=== PATIENT | female | born 1955 | race Caucasian/White ===

== ENCOUNTER 2019-08-22 11:14 | Outpatient (CLI) | payer OTHER, SELFPAY ==
--- NOTE | 2019-08-22 11:31 | CT_ITS ---
WS: [id number] CT ABDOMEN AND PELVIS WITH CONTRAST HISTORY: PELVIC NODULE TECHNIQUE: Imaging performed of the abdomen and pelvis with IV contrast. Single phase imaging of the abdomen. Coronal and sagittal reformats are submitted. All CT scans at [facility] use at least one of these dose optimization techniques: automated exposure control; mA and/or kV adjustment per patient size (includes targeted exams where dose is matched to clinical indication); or iterativ e reconstruction. IV CONTRAST: Omnipaque 300; 95 mL IV. Oral contrast: No DLP: 113.89 mGy-cm. COMPARISON: 07/31/2018 and 04/20/2018 Lower thorax: Lung bases are clear. Heart is normal size. No hiatal hernia. Liver/biliary system: Normal size with no intrahepatic dilatation. Gallbladder: Prior cholecystectomy. Pancreas: Normal. Spleen: Normal. Adrenal glands: Normal. Right kidney: Normal. Left kidney: Normal. Aorta: Normal. Lymphadenopathy: None. Free fluid: None. GI tract: Mild fecal retention. The appendix is not definitely visualized. No inflammatory changes in the RIGHT lower quadrant. There are several diverticula in the sigmoid colon. Abdominal wall: Small umbilical hernia contains fat only. Pelvis: Again noted is long-term stability of calcified nodule in the LEFT adnexa measuring 12 mm. B enign in appearance and may be related to a calcified diverticulum as it is inseparable from the sigm oid. Midline uterus. No adnexal masses. Bones: Mild degenerative changes in the lower lumbar spine. CT/CT abdomen pelvis w con* [id number] IMPRESSION: 1. Benign calcified nodule in the LEFT adnexa may be from a prior episode of d iverticulitis with a calcified diverticulum. No additional follow-up necessary. 2. Prior cholecystectomy. 3. Small hiatal hernia.
[2019-08-22] MEDS: iohexol 300 mg/mL 100 mL Btl IV (12:33)
[2019-08-22 12:38] LABS: Blood Urea Nitrogen 16 mg/dL (8-23); Glomerular Filtration Rate 56.2 mL/min (90-130)
== END 2019-08-22 11:15 | disposition home or self-care (01) ==
PROVIDERS: Family Provider Family Medicine; Visit Provider Family Medicine
DX: R19.00 Intra-abdominal and pelvic swelling, mass and lump, unspecified site (principal); K44.9 Diaphragmatic hernia without obstruction or gangrene; Z90.49 Acquired absence of other specified parts of digestive tract
CPT/HCPCS: 74177; 82565; 84520; Q9967

== ENCOUNTER 2019-11-14 08:35 | Day surgery (SDC) | payer OTHER, SELFPAY ==
[2019-11-13 10:19] VITALS: BMI 25.0
[2019-11-14 08:55] VITALS: BP 133/84; PULSE 85; RESP 18; TEMP 36.2; O2SAT 96
--- NOTE | 2019-11-14 09:02 | ANES.PREANE2 ---
Pre-Anesthetic Assessment Pre-Anesthetic Assessment: Height/Weight: Height 1.73 m Weight 74.843 kg Temp Pulse Resp BP Pulse Ox 97.2 F L 85 18 133/84 96 11/14/19 08:55 11/14/19 08:55 11/14/19 08:55 11/14/19 08:55 11/14/19 08:55 Preop Diagnosis: p Proposed Procedure: Operation Date: 11/14/19 10:45 Proposed Procedures p Colonoscopy 17916 Z86.010(Not Applicable) - Guillermo Kingston MD Was Beta Susie taken within 24 hours: N/A Last intake: Intake Last Liquid Date 11/13/19 Last Liquid Time 23:30 Last Solid Date 11/12/19 Last Intake: 09:06 Social: Social History: No alcohol and No tobacco Exam: Pre-Anes Outpt Exam: alert, oriented x 3, clear to auscultation bilaterally and regular rate & rhythm Airway: Submandibular: WNL Cervical ROM: WNL MP: 1 History/ROS: No significant complaints Pulmonary: Pulmonary: None reported CV/HEM: CV/HEM: None reported : : None reported Hepatic: Hepatic: None reported GI: GI: GERD Metabolic: Metabolic: None reported Musc/skel: Musc/skel: None reported Neuropsych: Neuropsych: None reported Anesthetic Plan: ASA status: 2 Anesthesia: MAC Risk of > 500 ml blood loss (7ml/kg in children): No PFSH Anesthesia PFSH: Family History Other Cancer Diabetes Heart disease Social History (Updated 11/10/19 @ 14:[address]) Smoking and tobacco status: never smoked Alcohol intake: current Alcohol intake frequency: holidays/special occasions only History of recent travel: No Data Anesthesia Cardiac Studies: No Data to Display
[2019-11-14] MEDS: sodium chloride 0.9% 1,000 ML 30 ML IV (09:05)
--- NOTE | 2019-11-14 09:47 | W.PM.OPSUD ---
Surgery/Procedure H&P Update DATE OF PROCEDURE: November 14, 2019 DATE H&P PERFORMED: 11/10/19 PREOP DIAGNOSIS: p PLANNED PROCEDURE: Operation Date: 11/14/19 10:45 Proposed Procedures p Colonoscopy 54639 Z86.010(Not Applicable) - Guillermo Kingston MD
[2019-11-14 10:08] VITALS: BP 103/56; PULSE 65; RESP 16; TEMP 36.4; O2SAT 99
--- NOTE | 2019-11-14 10:12 | ANE.PACU2 ---
Inpatient post-anesthesia follow up: Airway intact: Yes Vital signs: Temperature 97.6 F Pulse Rate 65 Respiratory Rate 16 Blood Pressure 103/56 Pulse Oximetry 99 Oxygen Delivery Me thod Nasal Cannula Oxygen Flow Rate 3 Fraction of Inspir ed Oxygen Hydration adequate: Yes Nausea and vomiting: No Pain level: 1 Mental status: Baseline
[2019-11-14 10:15] VITALS: BP 106/63; PULSE 62; RESP 18; O2SAT 99
== END 2019-11-14 10:25 | disposition home or self-care (01) ==
PROVIDERS: Family Provider Family Medicine; PCP Family Medicine; Visit Provider Internal Medicine
PROC: 0DJD8ZZ Inspection of Lower Intestinal Tract, Via Natural or Artificial Opening Endoscopic (ICD-10-PCS; CPT 45378; principal; 2019-11-14 09:30)
DX: Z12.11 Encounter for screening for malignant neoplasm of colon (principal); Z86.010 Personal history of colon polyps; K21.9 Gastro-esophageal reflux disease without esophagitis
CPT/HCPCS: 12345; 45378; J2704; J7030

== ENCOUNTER 2020-06-30 09:29 | Outpatient (RCR) | payer OTHER, SELFPAY | END 2020-06-30 23:59 | disposition home or self-care (01) | LOC: SPT 09:29 | PROVIDERS: PCP Family Medicine; Referring Provider Chiropractor; Visit Provider Chiropractor | DX: M54.2 Cervicalgia (principal) | CPT/HCPCS: 97110; 97162 ==

== ENCOUNTER 2020-07-01 06:00 | Outpatient (RCR) | payer OTHER, SELFPAY | END 2020-07-30 23:59 | disposition home or self-care (01) | LOC: SPT 06:00 | PROVIDERS: PCP Family Medicine; Referring Provider Chiropractor; Visit Provider Chiropractor | DX: M54.2 Cervicalgia (principal) | CPT/HCPCS: 97110 ==

== ENCOUNTER → 2020-10-13 09:07 | Outpatient (BNVA) | payer OTHER, SELFPAY | PROVIDERS: PCP Family Medicine; Referring Provider Chiropractor; Visit Provider Podiatrist Foot & Ankle Surgery | DX: M79.672 Pain in left foot (principal) | CPT/HCPCS: 73630 ==

== ENCOUNTER 2020-10-13 14:26 | Outpatient (CLI) | payer OTHER, SELFPAY | END 2020-10-13 14:27 | disposition home or self-care (01) | LOC: SPT 14:26 | PROVIDERS: PCP Family Medicine; Visit Provider Podiatrist Foot & Ankle Surgery | DX: Z46.89 Encounter for fitting and adjustment of other specified devices (principal); S92.352D Displaced fracture of fifth metatarsal bone, left foot, subsequent encounter for fracture with routine healing; X58.XXXD Exposure to other specified factors, subsequent encounter | CPT/HCPCS: 97760; L4361 ==

== ENCOUNTER → 2020-10-28 14:25 | Outpatient (BNVA) | payer OTHER, SELFPAY | PROVIDERS: PCP Family Medicine; Visit Provider Podiatrist Foot & Ankle Surgery | DX: M79.672 Pain in left foot (principal); S92.352A Displaced fracture of fifth metatarsal bone, left foot, initial encounter for closed fracture | CPT/HCPCS: 73630 ==

== ENCOUNTER 2022-07-04 13:04 | Outpatient (CLI) | payer OTHER, SELFPAY ==
--- NOTE | 2022-07-04 13:26 | MR_ITS ---
WS: [id number] MRI CERVICAL SPINE NONCONTRAST TECHNIQUE: Sagittal T1, T2 and STIR imaging. Axial T2, gradient, and fiesta imaging. CLINICAL INFORMATION: CERVICAL PAIN COMPARISON: None. FINDINGS: Straightening of the normal cervical lordosis. Cord signal is normal. No significant central canal st enosis. C2-C3: Normal. C3-C4: Mild facet arthropathy. Spinal canal and foramen are patent. C4-C5: Mild disc osteophyte complex with endplate ridging. Slight contact of the cervical cord. Spina l canal is patent. Mild facet arthropathy. Mild LEFT bony foraminal narrowing. C5-C6: Mild disc bulging with a tiny shallow central protrusion. Slight contact of the cervical cord. Spinal canal is patent. Mild facet arthropathy. Mild LEFT bony foraminal narrowing. C6-C7: Mild disc bulging with slight effacement of ventral thecal sac. Spinal canal is patent. Mild L EFT bony foraminal narrowing. C7-T1: No significant disc bulging. Spinal canal is patent. Foramen are patent. Visualized brain stem structures: Normal. Prevertebral soft tissues: Normal. MR/MR cervical spin wo con* [id number] IMPRESSION: 1. Straightening of the normal cervical lordosis. Cord signal is normal. 2. Mild disc bulging C4-C5 C5-C6 and C6-C7 with slight contact of the cervical cord at C4-C5 and C5-C6. No significant central canal stenosis. 3. Mild LEFT C4-C5 C5-C6 and C6-C7 bony foraminal narrowing. 4. Mild to moderate facet arthropathy C4-C6.
== END 2022-07-04 13:05 | disposition home or self-care (01) ==
PROVIDERS: PCP Family Medicine; Visit Provider Chiropractor
DX: M54.12 Radiculopathy, cervical region (principal); M47.892 Other spondylosis, cervical region; M50.322 Other cervical disc degeneration at C5-C6 level
CPT/HCPCS: 72141

== ENCOUNTER 2024-08-05 14:28 | Outpatient (CLI) | payer OTHER, SELFPAY ==
--- NOTE | 2024-08-05 14:49 | CT_ITS ---
WS: [id number] CTA THORACIC AORTA WITH AND WITHOUT CONTRAST HISTORY: PAIN IN THORACIC SPINE, family history of aneurysms. TECHNIQUE: CTA imaging of the thorax is performed with and without contrast. After noncontrast imaging is performed, CT angiogram is performed during injection of Omnipaque 350; 100 mL IV.. Sagittal and coronal reconstructions, sagittal and coronal MIP imaging is submitted. All CT scans at [facility] use at least one of these dose optimization techniques: automated exposure control; mA and/or kV adjustment per patient size (includes targeted exams where dose is matched to clinical indication); or iterative reconstruction. DLP: 539.05 mGy.cm COMPARISON: 04/20/2018 Normal sized thoracic aorta. Ascending thoracic aortic diameter of 3.2 cm. Normal appearance of the sinus of Valsalva and sinotubular junction. Normal thoracic aortic arch and descending aorta. No aneurysm, dissection or ulcerated plaque. Normal great vessels arise from the aortic arch. Heart size is normal. No pericardial or pleural effusions. No pulmonary mass, nodule or endobronchial lesions. No pneumonia. Normal enhancement of the pulmonary arteries. No RIGHT heart strain. Small hiatal hernia. No adrenal mass. No mediastinal or hilar adenopathy. Bilateral breast implants. No destructive bone lesions. Thoracic vertebral bodies are normally aligned. No rib lesions. Negative thyroid. CT/CT angio chest [id number] IMPRESSION: 1. Normal thoracic aorta. No dissection or aneurysm. 2. No pulmonary mass or nodule. 3. Bilateral breast implants. 4. Small hiatal hernia. 5. No destructive thoracic vertebral body process identified.
[2024-08-05] MEDS: iohexol 350 mg/mL 500 mL Btl (per mL) IV (15:11)
== END 2024-08-05 14:29 | disposition home or self-care (01) ==
PROVIDERS: PCP Family Medicine; Visit Provider Physician Assistant
DX: M54.6 Pain in thoracic spine (principal); Z82.49 Family history of ischemic heart disease and other diseases of the circulatory system; Z98.82 Breast implant status; K44.9 Diaphragmatic hernia without obstruction or gangrene
CPT/HCPCS: 71275

== ENCOUNTER 2024-08-12 07:19 | Outpatient (CLI) | payer OTHER, SELFPAY ==
--- NOTE | 2024-08-12 07:27 | USCV_ITS ---
Ludivina Henry Age: 69 Gender: F : 1955 Exam Date: 08/12/2024 07:40 Ordering Phys: Saloni Taylor Technologist: Exam Location: [facility] [place] Indication: ao HISTORY: Diameter (cm) AP x Transverse x Length Velocity (cm/s) Waveform Prox Aorta: 2.00 x 2.00 x 78.50 Biphasic Mid Aorta: 1.50 x 1.50 x 65.40 Biphasic Distal Aorta: 1.50 x 1.50 x 61.80 Biphasic Right Iliac Prox: 1.10 x 0.93 x 64.00 Biphasic Left Iliac Prox: 1.00 x 0.80 x 103.60 Biphasic Stent Prox Landing x x Aneurysmal Sac Max x x Lt Lat Sac Dim Rt Lat Sac Dim Stent Dist Landing x x Right Iliac Stent x x Left Iliac Stent x x Right Renal Art Left Renal Art FINDINGS: Comparison: none available. No evidence of abdominal aortic or bilateral iliac aneurysm. No significant stenosis noted in the abdominal aorta. CONCLUSIONS No evidence of abdominal aortic or bilateral iliac aneurysm. Dr. Belen Eckert DO (Electronically Signed) Final Date: 12 Aug 2024 13:13 S
== END 2024-08-12 07:20 | disposition home or self-care (01) ==
PROVIDERS: PCP Family Medicine; Visit Provider Physician Assistant
DX: Z03.89 Encounter for observation for other suspected diseases and conditions ruled out (principal); Z82.49 Family history of ischemic heart disease and other diseases of the circulatory system
CPT/HCPCS: 93978